=== PATIENT | male | born 1930 | race Caucasian/White ===

== ENCOUNTER 2017-01-06 10:26 | Emergency (ER) | payer MEDICARE, BC ==
--- NOTE | 2017-01-06 11:02 | ERNOTE ---
Back Pain ER HPI Presenting Symptoms: other - patient complains of left flank pain and states he' s had this intermittently with possible kidney stones and/or a UTI Time Seen by Provider: 01/06/17 10:50 Source: patient Exam Limitations: no limitations Immunizations: IMMUNIZATION HX Immunizations Up to Date Yes Allergies/Adverse Reactions: Allergies No Known Allergies Allergy (Verified 01/06/17 10:33) Home Medications: HOME MEDICATIONS Dabigatran Etexilate Mesylate [Pradaxa] 150 mg PO BID 12/08/12 [Last Taken 05/20] Lisinopril 2.5 mg PO DAILY 12/08/12 [Last Taken 05/20/13] Nitroglycerin [Nitrostat] 1 tab SL Q5MIN PRN 12/08/12 [Last Taken Unknown] Pravastatin Sodium [Pravachol] 20 mg PO HS 12/08/12 [Last Taken 05/19/13] Finasteride 5 mg PO DAILY 05/20/13 [Last Taken 05/20/13] Tamsulosin HCl [Flomax] 0.4 mg PO HS 05/20/13 [Last Taken 05/19/13] Ciprofloxacin HCl [Cipro] 500 mg PO BID #20 tab 01/06/17 [Last Taken Unknown] metroNIDAZOLE [Flagyl] 500 mg PO Q12H #20 tablet 01/06/17 [Last Taken Unknown] Narrative: Patient complains of recurrent left flank pain. He rates as moderate intensity with mild shooting pain down into the lower abdomen. Timing: Reports: constant, intermittent Quality/Severity: Reports: moderate Location of pain: Reports: other - left flank Activities at Onset: Reports: none Recent Injury?: Reports: no Possible Precipitating Factor: Reports: none Modifying Factors - (Improves): Reports: nothing Modifying Factors - (Worsens): Reports: nothing Associated Symptoms: Reports: none Review of Systems - Review of Systems Constitutional: Present: See HPI EYE: Present: no symptoms reported ENT: Present: no symptoms reported Respiratory: Present: no symptoms reported Cardiology: Present: no symptoms reported Gastrointestinal/Abdominal: Present: no symptoms reported Genitourinary: Present: other - left flank moderate pain Musculoskeletal: Present: no symptoms reported Skin: Present: no symptoms reported Neurological: Present: no symptoms reported Endocrine: Present: no symptoms reported Hematologic/Lymphatic: Present: no symptoms reported Psych: Present: no symptoms reported - Patient's Past Medical History Patient History - Medical: UTI'S, Other - kidney stones Patient History - Cardiac/Respiratory: Arrhythmias, Hypertension, Myocardial Infarction Patient History - Cancer: Bladder Patient History - Surgical Procedures: Appendectomy Patient History - Other: Immunosuppresive Tx >3mo - Family History Mother Family History - Medical: , No pertinent hx Father Family History - Medical: Family History - Cardiac/Respiratory: Myocardial Infarction - Social History Living Situations: home Abuse History: No History of abuse Psych History: No pertinent hx Alcohol Use: none Drug Use: none - Immunizations Immunizations Up to Date: Yes Physical Exam - Physical Exam General Appearance: Present: wd/wn, alert, moderate distress Head Exam: Present: normal inspection Eye Exam: Normal inspection: bilateral, PERRL: bilateral Ears, Nose, Throat: Present: normal ENT inspection, H, normal pharynx Neck: Present: normal inspection, nontender Respiratory: Present: no respiratory distress, normal breath sounds, no accessory muscle use, chest nontender, lungs clear Cardiovascular/Chest: Present: regular rate, rhythm, no murmur, normal peripheral pulses Gastrointestinal/Abdominal: Present: normal bowel sounds, nondistended, soft, no organomegaly, tenderness - mild suprapubic Rectal Exam: Present: deferred Back Exam: Present: normal inspection, normal range of motion Extremity Exam: Present: normal inspection, non-tender, no edema, normal range of motion Neurological Exam: Present: alert, oriented, normal mood/affect Skin Exam: Present: normal color, warm/dry Lymphatic Exam: Present: no adenopathy ED Progress - Results and Orders Patient's Lab Results:: I have reviewed the patient's lab results. - Vital Signs Patient's Vital Signs:: I have reviewed the patient's vital signs. Vital Signs: Vital Signs 01/06/17 10:29 Temperature 36.6 C Pulse Rate 87 Respiratory 16 Rate Blood Pressure 101/64 O2 Sat by Pulse 95 Oximetry - Progress/Reassessment Chief Complaint: Back Pain Plan - Plan Plan: The patient does not have a fever or diarrhea, to consider the possibility of diverticulitis versus colitis and I agree with the radiologist. Patient be started on antibiotics and he will be referred to on-call general surgeon for consideration of a colonoscopy. Departure Clinical Impression: Abdominal pain Qualifiers: Abdominal location: left lower quadrant Qualified Code(s): R10.32 - Left lower quadrant pain - Departure Disposition: Home self-care Condition: Good Instructions: Diverticulitis, [id number], Colitis Additional Instructions: Discuss arranging a colonoscopy with Dr. Godwin Referrals: J Luis Godwin MD [Primary Care Provider] - Prescriptions: Ciprofloxacin HCl [Cipro] 500 mg PO BID #20 tab metroNIDAZOLE [Flagyl] 500 mg PO Q12H #20 tablet
[2017-01-06 11:20] LABS: Urine Appearance Clear; Urine Bacteria None Seen; Urine Bilirubin Negative (NEGATIVE); Urine Blood 10 /ul (NEGATIVE); Urine Color Yellow; Urine Ketone Negative (NEGATIVE); Urine Nitrite Negative (NEGATIVE); Urine Protein Negative (NEGATIVE); Urine RBC None Seen /hpf (0-5); Urine Squamous Epithelial Cell None Seen /hpf; Urine Urobilinogen Normal (NORMAL); Urine WBC 0-5 /hpf (0-5)
[2017-01-06] MEDS ORDERED: NORMAL SALINE 1,000 ML IV ONE (12:38)
[2017-01-06 12:53] LABS: Hematocrit 41.4 % (42.0-52.0); Hemoglobin 13.8 gm/dL (13.5-18.0); Mean Cell Volume 89.6 fl (78-100); Mean Corpuscular Hemoglobin 29.9 pg (27-31); Mean Corpuscular Hgb Conc 33.3 g/dl (32-36); Mean Platelet Volume 11.3 fl (6.0-9.5); Platelet Count 145 K/mm3 (150-450); Red Blood Count 4.62 M/mm3 (4.7-6.0); Red Cell Distribution Width 14.3 % (11.5-14.0); White Blood Count 10.5 K/mm3 (4.0-10.5)
[2017-01-06 12:58] LABS: Total Cells Counted 100
[2017-01-06 13:09] LABS: Atypical (Reactive) Lymph 11 % (0-2); Band 1 % (0-2.0); Eosinophil 1 % (0-3); Lymphocyte 42 % (20-51); Monocyte 2 % (0-9); Neutrophil 43 % (42-75); Neutrophil # 4.5 K/mm3 (1.3-6.0)
[2017-01-06 13:10] LABS: Platelet Estimate Normal (NORMAL); RBC Morphology Normal (NORMAL)
[2017-01-06 13:25] LABS: Albumin * 3.9 gm/dl (3.4-5.0); Anion Gap 11.3 mmol/L (6.8-13.8); BUN/Creatinine Ratio 17.6 (9.0-21.6); Bilirubin, Total 0.7 mg/dL (0.0-1.1); Ca. Corrected For Albumin 8.4 mg/dL (8.4-10.2); Calcium * 8.6 mg/dL (7.9-10.9); Carbon Dioxide 30.1 mmol/L (24-32.6); Potassium 4.4 mmol/L (3.4-4.6); Total Protein 7.5 gm/dL (6.2-8.2)
[2017-01-06 13:43] VITALS: BP 112/76
== END 2017-01-06 13:50 | disposition home or self-care (01) ==
LOC: ER 10:26
DX: R10.32 Left lower quadrant pain (principal); Z87.440 Personal history of urinary (tract) infections; Z87.442 Personal history of urinary calculi; Z85.51 Personal history of malignant neoplasm of bladder; Z79.01 Long term (current) use of anticoagulants; I10 Essential (primary) hypertension; I25.2 Old myocardial infarction

== ENCOUNTER 2017-03-20 08:15 | Emergency (ER) | payer MEDICARE, BC ==
[2017-03-20 08:31] VITALS: BP 118/51
--- NOTE | 2017-03-20 09:20 | ERNOTE ---
GI Bleeding/Rectal Pain ER Presenting Symptoms: dark/tarry stools Time Seen by Provider: 03/20/17 09:03 Source: patient, family Exam Limitations: no limitations Immunizations: IMMUNIZATION HX Immunizations Up to Date Yes History of Influenza Vaccine No Hx Pneumococcal Vaccination No Allergies/Adverse Reactions: Allergies No Known Allergies Allergy (Verified 01/06/17 10:33) Home Medications: HOME MEDICATIONS Dabigatran Etexilate Mesylate [Pradaxa] 150 mg PO BID 12/08/12 [Last Taken 05/20] Lisinopril 2.5 mg PO DAILY 12/08/12 [Last Taken 05/20/13] Nitroglycerin [Nitrostat] 1 tab SL Q5MIN PRN 12/08/12 [Last Taken Unknown] Pravastatin Sodium [Pravachol] 20 mg PO HS 12/08/12 [Last Taken 05/19/13] Finasteride 5 mg PO DAILY 05/20/13 [Last Taken 05/20/13] Tamsulosin HCl [Flomax] 0.4 mg PO HS 05/20/13 [Last Taken 05/19/13] Narrative: Patient is here for black stools and weakness. 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 He also has a history of bladder cancer, he is currently receiving intravesicular chemo. In 2014 he had a GI bleed, bleeding scan was inconclusive, no endoscopy after that. About a week ago he started to have black stools, not grossly bloddy, no diarrhea, no abodominal pain Patient is on pradaxa for afib three weeks ago he was started on augmentin for a sinus infection, finished about a week ago. Date (Duration): 03/13/17 Nausea/Vomiting: Present: none Abdominal Pain: Present: none Rectal Bleeding: Present: other. Absent: blood streaks on stool, bloody diarrhea Associated Symptoms: Reports: black stools. Denies: maroon stools, tarry stools , fainting, dizziness Prior Treament: Reports: recently seen, similar symptoms before. Denies: currently on antibiotics Review of Systems - Review of Systems Constitutional: Present: See HPI, recent illness, fatigue, malaise. Absent: fever, chills ENT: Absent: nose congestion, sore throat Respiratory: Present: shortness of breath - with excertion Cardiology: Absent: chest pain Gastrointestinal/Abdominal: Present: See HPI. Absent: nausea, vomiting, abdominal pain Genitourinary: Present: no symptoms reported Musculoskeletal: Absent: back pain Skin: Absent: rash Neurological: Absent: dizziness/light-headedness Hematologic/Lymphatic: Absent: easy bruising, easy bleeding - Patient's Past Medical History Patient History - Medical: UTI'S, Other Patient History - Cardiac/Respiratory: Arrhythmias, Hypertension, Hyperlipidemia , Myocardial Infarction Patient History - Cancer: Bladder, Non Hodgkins Lymphoma Patient History - Surgical Procedures: Appendectomy, Cardiac stent, Urology Patient History - Other: Immunosuppresive Tx >3mo - Family History Mother Family History - Medical: , No pertinent hx Father Family History - Medical: Family History - Cardiac/Respiratory: Myocardial Infarction - Social History Abuse History: No History of abuse Psych History: No pertinent hx Smoking Status: Former smoker Have you smoked in the past 12 months: No Do you dip or chew tobacco: No - Immunizations Immunizations Up to Date: Yes Hx Pneumococcal Vaccination: No History of Influenza Vaccine: No Physical Exam - Physical Exam General Appearance: Present: wd/wn, alert, no apparent distress Head Exam: Present: normal inspection Respiratory: Present: no respiratory distress, normal breath sounds, lungs clear Cardiovascular/Chest: Present: regular rate, rhythm, no murmur Gastrointestinal/Abdominal: Present: normal bowel sounds, nontender - , nondistended, soft Neurological Exam: Present: alert, oriented, normal mood/affect Skin Exam: Present: warm/dry, pallor ED Progress - Results and Orders Patient's Lab Results:: I have reviewed the patient's lab results. - Vital Signs Patient's Vital Signs:: I have reviewed the patient's vital signs. Vital Signs: Vital Signs 03/20/17 08:21 Temperature 36.4 C L Pulse Rate 95 Respiratory 14 Rate Blood Pressure 118/51 O2 Sat by Pulse 99 Oximetry - Progress/Reassessment Chief Complaint: GI Bleed Progress Note-Subjective: 03/20/17 10:[address] Woodall, has nothing to add to patients care at this point, was recently seen (January) 03/20/17 11:[address] Tato iglesias to stop mauriceaxa, send home with hemocult cards H/H on Friday, follow up on Sunday 03/2503/20/17 11:31 discussed plan with patient and family Departure Clinical Impression: GI bleeding Qualifiers: GI bleed type/associated pathology: unspecified gastrointestinal hemorrhage type Qualified Code(s): K92.2 - Gastrointestinal hemorrhage, unspecified Anemia Qualifiers: Anemia type: unspecified type Qualified Code(s): D64.9 - Anemia, unspecified - Departure Disposition: Home self-care Condition: Stable Instructions: Anemia, Nonspecific Additional Instructions: have your blood work done tomorrow and on Friday do the stool testing on the next stools available return to the ER at any time for worsening symptoms Referrals: J Luis Godwin MD [Primary Care Provider] - 03/25/17 2:00 pm
[2017-03-20 09:39] LABS: Hemoglobin 8.5 gm/dL (13.5-18.0); Mean Cell Volume 94.5 fl (78-100); Mean Corpuscular Hemoglobin 30.9 pg (27-31); Mean Corpuscular Hgb Conc 32.7 g/dl (32-36); Mean Platelet Volume 11.2 fl (6.0-9.5); Platelet Count 173 K/mm3 (150-450); Red Blood Count 2.75 M/mm3 (4.7-6.0); Red Cell Distribution Width 15.1 % (11.5-14.0)
[2017-03-20 09:42] LABS: Total Cells Counted 100
[2017-03-20 09:48] LABS: Albumin * 3.3 gm/dl (3.4-5.0); Anion Gap 9.3 mmol/L (6.8-13.8); Bilirubin, Total 0.4 mg/dL (0.0-1.1); Ca. Corrected For Albumin 8.6 mg/dL (8.4-10.2); Calcium * 8.4 mg/dL (7.9-10.9); Potassium 4.3 mmol/L (3.4-4.6); Total Protein 6.4 gm/dL (6.2-8.2)
[2017-03-20 10:00] LABS: Atypical (Reactive) Lymph 9 % (0-2); Band 1 % (0-2.0); Eosinophil 1 % (0-3); Hypochromia 1+; Lymphocyte 34 % (20-51); Monocyte 2 % (0-9); Neutrophil 53 % (42-75); Neutrophil # 6.9 K/mm3 (1.3-6.0); Platelet Estimate Normal (NORMAL)
== END 2017-03-20 11:37 | disposition home or self-care (01) ==
LOC: ER 08:15
DX: K92.2 Gastrointestinal hemorrhage, unspecified (principal); D64.9 Anemia, unspecified; Z87.440 Personal history of urinary (tract) infections; Z85.72 Personal history of non-Hodgkin lymphomas; Z85.51 Personal history of malignant neoplasm of bladder; Z95.5 Presence of coronary angioplasty implant and graft; Z87.891 Personal history of nicotine dependence

== ENCOUNTER 2017-03-27 21:47 | Emergency (ER) | payer MEDICARE, BC ==
--- NOTE | 2017-03-27 22:36 | ERNOTE ---
ENT HPI Date of Service: 03/27/17 Presenting Symptoms: other - blurred vision Time Seen by Provider: 03/27/17 22:35 Source: patient Exam Limitations: no limitations - Immun/Allergies/Home Medications Immunizations: IMMUNIZATION HX Immunizations Up to Date Yes History of Influenza Vaccine Yes Hx Pneumococcal Vaccination Yes Allergies/Adverse Reactions: Allergies Allergy/AdvReac Type Severity Reaction Status Date / Time No Known Allergies Allergy Verified 03/28/17 14:51 Home Medications: HOME MEDICATIONS Nitroglycerin [Nitrostat] 1 tab SL [id number] PRN 12/08/12 [Last Taken Unknown] Pravastatin Sodium [Pravachol] 20 mg PO HS 12/08/12 [Last Taken 05/19/13] Finasteride 5 mg PO DAILY 05/20/13 [Last Taken 05/20/13] DOXOrubicin HCL [Adriamycin] 50 mg IV Q60D 03/27/17 [Last Taken Unknown] Docetaxel [Docefrez] 37 mg IV Q60D 03/27/17 [Last Taken Unknown] Gemcitabine HCl 1 gm IV Q60D 03/27/17 [Last Taken Unknown] Wheat Dextrin [Benefiber] 1 tbs PO BID 03/27/17 [Last Taken Unknown] - History of Present Illness Narrative: 86 year old that was watching television when he suddenly saw a bright light flash in both eyes, and subsequently noted blurred vision in both eyes. He likened it to having dirty glasses. There was no actual loss of vision in either eye, headache or eye pain. He had a similar event occur 6-12 months ago that spontaneously resolved. No complaints of N/V, fevers, chills, chest/back/ abdominal pain, trauma, gait or weakness since the onset of symptoms. Date (Duration): 03/28/17 Time (Timing): 22:00 Severity: Present: mild ENT Location: Present: eye (R), eye (L) Prearrival Treatment: Present: no prearrival treatment Modifying Factors - Improves: Reports: nothing Modifying Factors - Worsens: Reports: nothing Associated Symptoms - ENT: Reports: denies symptoms Prior Treament: Reports: similar symptoms before Review of Systems - Review of Systems Constitutional: Present: no symptoms reported EYE: Present: see HPI ENT: Present: no symptoms reported Respiratory: Present: no symptoms reported Cardiology: Present: no symptoms reported Gastrointestinal/Abdominal: Present: no symptoms reported Genitourinary: Present: no symptoms reported Musculoskeletal: Present: no symptoms reported Skin: Present: no symptoms reported Neurological: Absent: headache, dizziness/light-headedness, seizure, weakness, numbness, tingling, tremors, pre-existing deficit Endocrine: Present: no symptoms reported Hematologic/Lymphatic: Present: no symptoms reported Psych: Present: no symptoms reported - Patient's Past Medical History Patient History - Medical: UTI'S, Other Patient History - Cardiac/Respiratory: Arrhythmias, Hypertension, Hyperlipidemia , Myocardial Infarction Patient History - Cancer: Bladder, Non Hodgkins Lymphoma Patient History - Surgical Procedures: Appendectomy, Cardiac stent, Urology Patient History - Other: Immunosuppresive Tx >3mo - Family History Mother Family History - Medical: , No pertinent hx Father Family History - Medical: Family History - Cardiac/Respiratory: Myocardial Infarction - Social History Living Situations: home Abuse History: No History of abuse Psych History: No pertinent hx Smoking Status: Former smoker Alcohol Use: none Drug Use: none - Immunizations Immunizations Up to Date: Yes Hx Pneumococcal Vaccination: Yes History of Influenza Vaccine: Yes Physical Exam - Physical Exam General Appearance: Present: no apparent distress Head Exam: Present: normal inspection Eye Exam: Normal inspection: bilateral, PERRL: bilateral, EOMI: bilateral, Other : bilateral - When visual oneill were tested his peripheral vision of the left was not a sharp as the right. Ears, Nose, Throat: Present: normal ENT inspection Neck: Present: normal inspection Respiratory: Present: no respiratory distress Cardiovascular/Chest: Present: regular rate, rhythm Gastrointestinal/Abdominal: Present: nondistended Back Exam: Present: normal inspection Extremity Exam: Present: normal inspection Neurological Exam: Present: alert, oriented, epic cupid analyst II-XII nml as tested, other - normal gait. Absent: motor weakness, disoriented to person, disoriented to time , disoriented to place, disoriented to situation Skin Exam: Present: normal color ED Progress - Vital Signs Patient's Vital Signs:: I have reviewed the patient's vital signs. Vital Signs: Vital Signs 03/27/17 21:51 Temperature 36.3 C L Pulse Rate 71 Respiratory 18 Rate Blood Pressure 136/80 O2 Sat by Pulse 99 Oximetry - Progress/Reassessment Chief Complaint: Eye Injury/Trauma Progress:: Improved Progress Note-Subjective: 03/28/17 20:51 Two attempts were made to contact the ophthalmologists but there was no answer. While in the ED the symptoms were resolving. It is suspected that the symptoms were due to an ocular migraine, and unlikely to be a TIA. He was referred to Dr. Estrella first thing in the morning, which is a few hours withing being seen. An MRI should be considered. 03/28/17 20:53 03/28/17 23:43 Departure Clinical Impression: Blurred vision, bilateral - Departure Disposition: Home self-care Condition: Good Instructions: Blurred Vision Print Language: [place] Additional Instructions: Call Dr. Mae the first thing in the morning for consultation. Return to the ED as needed. Referrals: Shade Mae MD [Staff Physician] - J Luis Godwin MD [Primary Care Provider] -
[2017-03-28 01:13] VITALS: BP 125/59
== END 2017-03-28 01:05 | disposition home or self-care (01) ==
LOC: ER 21:47
DX: H53.8 Other visual disturbances (principal); Z87.440 Personal history of urinary (tract) infections; I10 Essential (primary) hypertension; E78.5 Hyperlipidemia, unspecified; I25.2 Old myocardial infarction; Z85.51 Personal history of malignant neoplasm of bladder; Z85.72 Personal history of non-Hodgkin lymphomas; Z87.891 Personal history of nicotine dependence

== ENCOUNTER 2017-03-28 14:12 | Day surgery (SDC) | payer MEDICARE, BC ==
[~2017-03-28 14:12] MED LIST: RINGER'S SOLUTION,LACTATED 1,000 ML IV PRN
[2017-03-28] MEDS ORDERED: RINGER'S SOLUTION,LACTATED 1,000 ML IV ONE (14:50)
--- NOTE | 2017-03-28 17:05 | OR ---
Operative Report - Dictated Report Narrative: Date: 03/28/2017 Preoperative diagnosis: Anemia, possible gastric source of her bleeding scan Postoperative diagnosis: Numerous nodules of the duodenal bulb with friability. Small hiatal hernia. Procedure: Esophagogastroduodenoscopy with biopsy Surgeon: Mike Kim MD Anesthesia: MAC per ART APPRAISER EBL: Minimal Specimens: Cold forcep biopsy of duodenal nodule. CLOtest. Description of procedure: After informed consent the bite block was inserted and IV sedation was administered P per ART APPRAISER. Flexible video endoscope was inserted through the bite block, through the posterior pharynx, and into the esophagus under direct vision. The scope was then advanced through the esophagus, stomach, and into the duodenum. We were able to cannulate the third portion of the duodenum. The second and third portion of the duodenum appeared to be normal. The duodenal bulb had numerous nodules that were friable and mildly bleeding. A cold forceps biopsy was taken of one of these nodules. The scope was then withdrawn into the antrum and a CLOtest biopsy was taken with cold forceps. The antrum body and fundus of the stomach appeared to be normal there was no gastritis or ulcers noted. Retroflexion of the scope within the stomach revealed a small hiatal hernia. The endoscope was withdrawn into the distal esophagus. No abnormalities were seen. Remainder of the esophagus was unremarkable. The patient tolerated procedure well and was discharged from the endoscopy suite in stable condition. Recommendations: Await pathology results on the duodenal biopsy and CLOtest.
[2017-03-28 18:02] VITALS: BP 114/45
== END 2017-03-28 14:13 | disposition home or self-care (01) ==
LOC: AMB 14:12
PROVIDERS: ATTEND Specialist
PROC: 0DB98ZX Excision of Duodenum, Via Natural or Artificial Opening Endoscopic, Diagnostic (ICD-10-PCS; principal; 2017-03-28 16:00)
DX: K29.50 Unspecified chronic gastritis without bleeding (principal); D64.9 Anemia, unspecified; K44.9 Diaphragmatic hernia without obstruction or gangrene; I10 Essential (primary) hypertension; E78.5 Hyperlipidemia, unspecified; I25.10 Atherosclerotic heart disease of native coronary artery without angina pectoris; I48.91 Unspecified atrial fibrillation; C67.9 Malignant neoplasm of bladder, unspecified; Z87.891 Personal history of nicotine dependence; Z68.27 Body mass index [BMI] 27.0-27.9, adult

== ENCOUNTER 2018-04-01 09:57 | Observation (INO) | payer BC, MEDICARE ==
[2018-04-01] MEDS ORDERED: DILTIAZEM HCL 5 MG/ML VIAL IV ONE ×2 (10:04→10:07)
[2018-04-01] MEDS ORDERED: FAMOTIDINE 10 MG/ML VIAL IV ONE ×2 (10:07→10:08)
[2018-04-01] MEDS ORDERED: METHYLPREDNISOLONE SOD SUCC/PF 125 MG/2 ML VIAL IV ONE (10:07)
[2018-04-01] MEDS ORDERED: diphenhydrAMINE HCL 50 MG/ML VIAL IV ONE (10:07)
[2018-04-01] MEDS: NORMAL SALINE 100 ML IV ONE ×2 (10:10→14:10)
[2018-04-01] MEDS ORDERED: ALBUTEROL SULFATE/IPRATROPIUM 3 ML NEBU IH ONE ×2 (10:10→10:20)
[2018-04-01] MEDS ORDERED: METOPROLOL TARTRATE 1 MG/ML AMPUL IV ONE ×2 (10:16→10:20)
[2018-04-01 10:21] LABS: Hematocrit 34.8 % (42.0-52.0); Hemoglobin 10.1 gm/dL (13.5-18.0); Mean Cell Volume 92.8 fl (78-100); Mean Corpuscular Hemoglobin 26.9 pg (27-31); Platelet Count 227 K/mm3 (150-450); Red Blood Count 3.75 M/mm3 (4.7-6.0); Red Cell Distribution Width 18.2 % (11.5-14.0); White Blood Count 13.6 K/mm3 (4.0-10.5)
--- NOTE | 2018-04-01 10:22 | ERNOTE ---
Allergy Symptoms - ER Presenting Symptoms: trouble breathing Time Seen by Provider: 04/01/18 10:00 Source: patient, RN/MD Exam Limitations: other - profound respiratory distress Immunizations: IMMUNIZATION HX Immunizations Up to Date Yes History of Influenza Vaccine Yes Hx Pneumococcal Vaccination Yes Allergies/Adverse Reactions: Allergies ferumoxytol [From F[employer]] Allergy (Severe, Verified 04/01/18 10:46) Anaphylaxis witnessed Home Medications: HOME MEDICATIONS metoprolol tartrate 25 mg tablet 12.5 mg PO BID tab 10/29/17 [Last Taken Unknown] multivitamin tablet 1 tab PO DAILY 10/29/17 [Last Taken Unknown] dabigatran etexilate 150 mg capsule 75 mg PO BID cap 12/30/17 [Last Taken Unknown] nitroglycerin 0.4 mg sublingual tablet 0.4 mg SL Q5M PRN #20 tab 02/25/18 [Last Taken Unknown] finasteride 5 mg tablet 5 mg PO DAILY #90 tab 03/05/18 [Last Taken Unknown] furosemide 40 mg tablet 80 mg PO DAILY #60 tab 03/18/18 [Last Taken Unknown] 2 morgan walker 0 .ROUTE .MEDSUPPLY #99 ea 03/31/18 [Last Taken Unknown] pravastatin 20 mg tablet 20 mg PO HS #90 tab 03/31/18 [Last Taken Unknown] - History of Present Illness Narrative: Patient was in our annex getting an iron transfusion and had an acute severe a llergic reaction. Patient was found to be in atrial fibrillation with a rapid ventricular response, he was profoundly hypoxic and moving a little to no air. Timing: Present: constant Treatment LABEL TACKER:: none Location skin rash/itching: Present: none Location swelling: Present: none Severity shortness of breath: Present: severe Severity trouble swallowing/speaking: Present: severe Identified cause?: Yes - likely the iron injections Exposure: Present: none Modifying Factors (Improves): Reports: nothing Modifying Factors (Worsens): Reports: nothing Similar symptoms previously: No Prior Treament: Reports: recently seen, treated by physician Review of Systems - Review of Systems Constitutional: Present: See HPI EYE: Present: no symptoms reported ENT: Present: no symptoms reported Respiratory: Present: See HPI Cardiology: Present: See HPI Gastrointestinal/Abdominal: Present: no symptoms reported Genitourinary: Present: no symptoms reported Musculoskeletal: Present: no symptoms reported Skin: Present: no symptoms reported Neurological: Present: no symptoms reported Endocrine: Present: no symptoms reported Hematologic/Lymphatic: Present: no symptoms reported Psych: Present: no symptoms reported Medical History (Last Reviewed 04/01/18 @ 10:25 by Ewa Melara RN) Atrial fibrillation Onset Date: Unknown 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 Congestive heart failure Onset Date: Unknown Coronary artery disease Onset Date: Unknown Hyperlipidemia Onset Date: Unknown Hypertension Onset Date: Unknown Intermittent self-catheterization of bladder Onset Date: ~12/07/15 Monthly maintenance intravesical installation of Adriamycin/Gemcitabine Lymphedema Onset Date: ~06/04/17 Right lower extremity Malignant neoplasm of bladder Onset Date: Unknown PVD (peripheral vascular disease) Onset Date: ~04/09/17 Left common femoral artery and left external iliac artery embolectomy Seasonal allergies Onset Date: Unknown Dysuria Onset Date: Unknown Hernia, inguinal Onset Date: Unknown Hx of echocardiogram Onset Date: ~01/22/10 EF - 60%, moderate apical hypo, moderate LVH Lymphoma, non-Hodgkin's Onset Date: ~1999 Myocardial infarction Onset Date: ~02/07/10 NSTEMI Ventricular tachycardia Onset Date: Unknown Surgical History: Surgical History (Last Reviewed 04/01/18 @ 10:25 by Ewa Melara RN) H/O colonoscopy Onset Date: ~06/18/99 Nahomy; [place] H/O cystoscopy Onset Date: Unknown 02/14/2015 - [facility] Dr[facility] Cristobal 07/2017: [facility] H/O inguinal hernia repair Onset Date: ~1979 [place] H/O transesophageal echocardiography (ANT) for monitoring Onset Date: Unknown 01/25/11, 02/19/11 History of appendectomy Onset Date: ~[place] History of biopsy of bladder Onset Date: ~02/15/16 06/02/2015 and 02/15/2016; [facility] Cristobal History of bowel resection Onset Date: ~1999 Small bowel resection History of embolectomy Onset Date: ~04/15/17 left femoral artery History of esophagogastroduodenoscopy (EGD) Onset Date: ~03/28/17199904/07/17: Tommeraasen - clotest negative, H. Pylori in the duodenum History of intravascular stent placement Onset Date: ~2010 2009 and 2010 - 2 stents History of left cataract surgery Onset Date: ~02/14/09 History of tonsillectomy Onset Date: ~1946 S/P TURP Onset Date: ~2012 Family History: Family History (Last Reviewed 04/01/18 @ 10:25 by Ewa Melara RN) Father , Age 58 Myocardial infarction Mother , Age 80 Hip fracture Sister , Age 82 Breast cancer CVA (cerebral vascular accident) Social History: Preferred Language Dominican Smoking Status Former smoker Abuse History No History of abuse Psych History No pertinent hx (Last Updated 03/31/18 @ 15:53 by J Luis Godwin MD) No Social History Section defined Physical Exam - Physical Exam General Appearance: Present: wd/wn, alert, severe distress Head Exam: Present: normal inspection, no evidence of injury Eye Exam: Normal inspection: bilateral, PERRL: bilateral Ears, Nose, Throat: Present: normal ENT inspection, H, normal pharynx Neck: Present: normal inspection, nontender Respiratory: Present: chest nontender, respiratory distress, accessory muscle use, decreased breath sounds Cardiovascular/Chest: Present: no murmur, normal peripheral pulses, tachycardia, irregularly irregular Gastrointestinal/Abdominal: Present: normal bowel sounds, nontender, nondistended, soft, no organomegaly Rectal Exam: Present: deferred Back Exam: Present: normal inspection, normal range of motion Extremity Exam: Present: normal inspection, non-tender, no edema, normal range of motion Neurological Exam: Present: alert, oriented, normal mood/affect Skin Exam: Present: normal color, warm/dry Lymphatic Exam: Present: no adenopathy Progress - Results and Orders Patient's Lab Results:: I have reviewed the patient's lab results. - Vital Signs Patient's Vital Signs:: I have reviewed the patient's vital signs. Vital Signs: Vital Signs 04/01/18 09:59 04/01/18 10:07 04/01/18 10:21 Temperature 36.2 C Pulse Rate 140 H 140 H 98 Respiratory Rate 33 H Blood Pressure 137/76 137/76 120/60 O2 Sat by Pulse Oximetry 75 L - EKG EKG: atrial fibrillation EKG read: Reviewed by me - X-Ray X-Ray #1 X-Ray: chest Interpretation: Reviewed by me - Progress/Reassessment Chief Complaint: Allergic Reaction Plan - Plan Plan: Patient be admitted to the intensive care unit for weaning off of the BiPAP. Departure Clinical Impression: Allergic reaction due to correct medicinal substance properly administered, Chronic atrial fibrillation with RVR, Hypoxia - Departure Disposition: Still a patient Condition: Critical Critical Care Note - Critical Care Note Total Time (mins): 50 Comments: Patient required emergent intervention in the form of IV steroids, Benadryl, Pepcid, Cardizem, Lopressor IV and BiPAP. The patient was in impending respiratory failure as his oxygen saturation was approximately 70% and his PCO2 had climbed to 83.9 with a pH 7.193 that had deteriorated intercourse of minutes. The patient be admitted to the ICU and he will be weaned off the BiPAP hopefully over the course of the day. His heart rate has improved substantially to the 70s now, although his blood pressure is still somewhat labile at 88/50.
[2018-04-01 10:26] LABS: Total Cells Counted 100
[2018-04-01 10:35] LABS: INR 1.59 INR (0.90-1.10)
[2018-04-01 10:42] LABS: ALT 9 U/L (19-67); AST 16 U/L (0-48); Albumin * 2.5 gm/dl (3.4-5.0); Alkaline Phosphatase * 70 U/L (50-170); Anion Gap 10.3 mmol/L (6.8-13.8); BUN/Creatinine Ratio 18.8 (9.0-21.6); Bilirubin, Total 0.4 mg/dL (0.0-1.1); Blood Urea Nitrogen 29 mg/dL (6-23); Ca. Corrected For Albumin 10.1 mg/dL (8.4-10.2); Calcium * 9.2 mg/dL (7.9-10.9); Carbon Dioxide 33.2 mmol/L (24-32.6); Chloride 101 mmol/L (97-106); Glucose * 166 mg/dL (70-110); Magnesium 1.8 mg/dL (1.2-2.8); Potassium 3.5 mmol/L (3.4-4.6); Sodium 141 mmol/L (132-142)
[2018-04-01 10:43] LABS: Troponin I Less than 0.017 ng/mL (0.00-0.10)
[2018-04-01 10:54] LABS: Atypical (Reactive) Lymph 1 % (0-2); Band 1 % (0-2.0); Lymphocyte 61 % (20-51); Monocyte 8 % (0-9); Neutrophil 29 % (42-75); Neutrophil # 3.9 K/mm3 (1.3-6.0)
[2018-04-01 10:55] LABS: Anisocytosis 2+; Hypochromia 2+; Platelet Estimate Normal (NORMAL)
[2018-04-01] MEDS ORDERED: NORMAL SALINE 250 ML IV ONE (11:15)
[2018-04-01] MEDS ORDERED: NORMAL SALINE 1,000 ML IV ONE (11:15)
[2018-04-01] MEDS ORDERED: NITROGLYCERIN 0.4 MG/TAB BTL SL PRN (12:56)
--- NOTE | 2018-04-01 12:58 | HP ---
Chief Complaint - Chief Complaint Date of Service: 04/01/18 Time of Service: 14:01 Chief Complaint: allergic reaction, respiratory distress, a-fib c RVR History of Present Illness: 87 year old male here admitted to the SCU following an allergic reaction to an iron infusion which had been taking place in the annex earlier this morning. He became severely hypoxic (into the 70s) as well as having a heart rate was in the 150s. EKG in the ER showed him to be in a-fib with RVR. He was giving IV steroids, benadryl, diltiazem, pepcid, lopressor. He was placed on bipap. Initial ABG showed an acute respiratory acidosis with a pH of 7.19 and a pCO2 of 89. After receiving the above tx, it was decided that he needed observation and agreed to stay 24 hrs with us. He has a hx of non-hodgkins lymphoma, bladder cancer, a-fib c RVR, CHF, CAD, NS CLEMENTINE. In the unit he was on his first bag of fluids. His HR was in the 70s and his BP was stable at 100/70. He was comfortable and breathing much easier. 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 Congestive heart failure Onset Date: Unknown Coronary artery disease Onset Date: Unknown Hyperlipidemia Onset Date: Unknown Hypertension Onset Date: Unknown Lymphedema Onset Date: ~06/04/17 Right lower extremity Malignant neoplasm of bladder Onset Date: Unknown PVD (peripheral vascular disease) Onset Date: ~04/09/17 Left common femoral artery and left external iliac artery embolectomy Seasonal allergies Onset Date: Unknown Dysuria Onset Date: Unknown Hernia, inguinal Onset Date: Unknown Hx of echocardiogram Onset Date: ~01/22/10 EF - 60%, moderate apical hypo, moderate LVH Lymphoma, non-Hodgkin's Onset Date: ~1999 Myocardial infarction Onset Date: ~02/07/10 NSTEMI Ventricular tachycardia Onset Date: Unknown Surgical History: Surgical History (Last Reviewed 04/01/18 @ 12:11 by Mary Frias RN) H/O colonoscopy Onset Date: ~06/18/99 Nahomy; [place] H/O cystoscopy Onset Date: Unknown 02/14/2015 - cystoscopy and [facility] Dr. Cristobal 07/2017: [facility] H/O inguinal hernia repair Onset Date: ~[facility] H/O transesophageal echocardiography (ANT) for monitoring Onset Date: Unknown 01/25/11, 02/19/11 History of appendectomy Onset Date: ~1979 [place] History of biopsy of bladder Onset Date: ~02/15/1610/2017, 06/02/2015 and 02/15/2016; [facility] Crist[facility] History of bowel resection Onset Date: ~1999 Small bowel resection History of embolectomy Onset Date: ~04/15/17 left femoral artery History of esophagogastroduodenoscopy (EGD) Onset Date: ~03/28/17199904/07/17: Tommeraasen - clotest negative, H. Pylori in the duodenum History of intravascular stent placement Onset Date: ~2010 2009 and 2010 - 2 stents History of left cataract surgery Onset Date: ~02/14/09 History of tonsillectomy Onset Date: ~1946 S/P TURP Onset Date: ~2012 Family History: Family History (Last Reviewed 04/01/18 @ 12:12 by Mary Frias RN) Father , Age 58 Myocardial infarction Mother , Age 80 Hip fracture Sister , Age 82 Breast cancer CVA (cerebral vascular accident) Social History: Preferred Language Portuguese Do you have any mu-ism or Yes: taoist cultural preference? Smoking Status Former smoker Have you smoked in the past 12 No months Do you dip or chew tobacco No Abuse History No History of abuse Psych History No pertinent hx Alcohol Use sober Drug Use none (Last Updated 03/31/18 @ 15:53 by J Luis Godwin MD) No Social History Section defined Review Of Systems (GEN) - Review of Systems Generalized/Overall Review: Present: Weakness, Fatigue. Absent: Chills, Fever EENTM: Present: No Symptoms Reported Respiratory: Present: Shortness of Breath. Absent: Cough, Wheezing Cardiac: Absent: Palpitations - he never feels himself in a-fib per his Abdominal: Absent: Nausea, Vomiting, Abdominal Pain Genitourinary: Present: Hematuria - chronic due to the bladder cancer Musculoskeletal: Present: No Symptoms Reported Neurological: Present: No Symptoms Reported Skin: Present: No Symptoms Reported Endocrine: Present: No Symptoms Reported Misc: All systems neg except as marked Immunizations: IMMUNIZATION HX Immunizations Up to Date Yes History of Influenza Vaccine Yes Hx Pneumococcal Vaccination Yes Allergies/Adverse Reactions: Allergies Allergy/AdvReac Type Severity Reaction Status Date / Time ferumoxytol [From [employer]] Allergy Severe Anaphylaxis Verified 04/01/18 10:46 Home Medications: HOME MEDICATIONS metoprolol tartrate 25 mg tablet 12.5 mg PO BID tab 10/29/17 [Last Taken Unknown] multivitamin tablet 1 tab PO DAILY 10/29/17 [Last Taken Unknown] dabigatran etexilate 150 mg capsule 75 mg PO BID cap 12/30/17 [Last Taken Unknown] nitroglycerin 0.4 mg sublingual tablet 0.4 mg SL Q5M PRN #20 tab 02/25/18 [Last Taken Unknown] finasteride 5 mg tablet 5 mg PO DAILY #90 tab 03/05/18 [Last Taken Unknown] 2 morgan walker 0 .ROUTE .MEDSUPPLY #99 ea 03/31/18 [Last Taken Unknown] pravastatin 20 mg tablet 20 mg PO HS #90 tab 03/31/18 [Last Taken Unknown] Furosemide [Lasix] 10 meq PO BID 04/01/18 [Last Taken Unknown] Omeprazole 40 mg PO DAILY 04/01/18 [Last Taken Unknown] Exam - Exam Vital Signs: Vital Signs - Last Taken Temp 36.1 C 04/01/18 10:50 Pulse 70 04/01/18 11:15 Resp 26 H 04/01/18 11:15 BP 107/66 04/01/18 11:15 Pulse Ox 99 04/01/18 11:15 Constitutional: Present: Alert, Oriented x3, No distress ENT Exam: Present: other - deferred as patient had BiPaP mask on Eye Exam: bilateral eye: normal inspection, EOMI Neck: Present: non-tender, full range of motion Back Exam: Present: CVA tenderness (L) - chronic. Absent: CVA tenderness (R) Respiratory: Present: lungs clear, normal breath sounds, no respiratory distress - moving air well Cardiovascular/Chest: Present: normal peripheral pulses Abdomen: Present: Normal bowel sounds, soft, nontender /Rectal: Present: Exam deferred Extremity: Absent: leg pain, pedal edema Skin Exam: Present: normal color, warm/dry Neurologic: Present: alert, normal mood/affect, oriented x 3 Appearance: Present: appropriate appearance, appropriate insight Eye contact: Present: cooperative, good eye contact Thoughts: Present: normal thought pattern, normal mood /affect Diagnostic Studies: Abnormal Lab Results 04/01/18 04/01/18 04/01/18 Range/Units 10:07 10:10 10:10 WBC 13.6 H (4.0-10.5) K/mm3 RBC 3.75 L (4.7-6.0) M/mm3 Hgb 10.1 L (13.5-18.0) gm/dL Hct 34.8 L (42.0-52.0) % MCH 26.9 L (27-31) pg MCHC 29.0 L (32-36) g/dl RDW 18.2 H (11.5-14.0) % Neutrophils % (Manual) 29 L (42-75) % Lymphocytes % (Manual) 61 H (20-51) % Lymphocytes # (Manual) 8.3 H (1.5-3.5) k/mm3 Monocytes # (Manual) 1.1 H (0.0-1.0) k/mm3 PT (9.0-11.0) Seconds INR (Anticoag Therapy) (0.90-1.10) INR PTT (Ge) (24-32) Seconds pCO2 83.9 H* (35.0-48.0) mmHg HCO3 31.5 H (21.0-28.0) mmol/L Total CO2 34.1 H (19.0-24.0) mmol/L ABG pH 7.19 L (7.35-7.45) Carbon Dioxide 33.2 H (24-32.6) mmol/L BUN 29 H (6-23) mg/dL Creatinine 1.54 H (0.4-1.4) mg/dL Est GFR (Non-Af Amer) 46 L (60-130) mL/min Random Glucose 166 H D (70-110) mg/dL ALT 9 L (19-67) U/L Albumin 2.5 L (3.4-5.0) gm/dl 04/01/18 Range/Units 10:10 WBC (4.0-10.5) K/mm3 RBC (4.7-6.0) M/mm3 Hgb (13.5-18.0) gm/dL Hct (42.0-52.0) % MCH (27-31) pg MCHC (32-36) g/dl RDW (11.5-14.0) % Neutrophils % (Manual) (42-75) % Lymphocytes % (Manual) (20-51) % Lymphocytes # (Manual) (1.5-3.5) k/mm3 Monocytes # (Manual) (0.0-1.0) k/mm3 PT 16.0 H (9.0-11.0) Seconds INR (Anticoag Therapy) 1.59 H (0.90-1.10) INR PTT (Ge) 39.0 H (24-32) Seconds pCO2 (35.0-48.0) mmHg HCO3 (21.0-28.0) mmol/L Total CO2 (19.0-24.0) mmol/L ABG pH (7.35-7.45) Carbon Dioxide (24-32.6) mmol/L BUN (6-23) mg/dL Creatinine (0.4-1.4) mg/dL Est GFR (Non-Af Amer) (60-130) mL/min Random Glucose (70-110) mg/dL ALT (19-67) U/L Albumin (3.4-5.0) gm/dl Laboratory Results WBC 13.6 K/mm3 (4.0-10.5) H 04/01/18 10:10 RBC 3.75 M/mm3 (4.7-6.0) L 04/01/18 10:10 Hgb 10.1 gm/dL (13.5-18.0) L 04/01/18 10:10 Hct 34.8 % (42.0-52.0) L 04/01/18 10:10 MCV 92.8 fl (78-100) 04/01/18 10:10 MCH 26.9 pg (27-31) L 04/01/18 10:10 MCHC 29.0 g/dl (32-36) L 04/01/18 10:10 RDW 18.2 % (11.5-14.0) H 04/01/18 10:10 Plt Count 227 K/mm3 (150-450) 04/01/18 10:10 MPV 11.0 fl (8-11.3) 04/01/18 10:10 Neutrophils % (Manual) 29 % (42-75) L 04/01/18 10:10 Band Neuts % (Manual) 1 % (0-2.0) 04/01/18 10:10 Lymphocytes % (Manual) 61 % (20-51) H 04/01/18 10:10 Monocytes % (Manual) 8 % (0-9) 04/01/18 10:10 Neutrophils # (Manual) 3.9 K/mm3 (1.3-6.0) 04/01/18 10:10 Lymphocytes # (Manual) 8.3 k/mm3 (1.5-3.5) H 04/01/18 10:10 Monocytes # (Manual) 1.1 k/mm3 (0.0-1.0) H 04/01/18 10:10 Atypic/Reactive Lymphs 1 % (0-2) 04/01/18 10:10 Platelet Estimate Normal (NORMAL) 04/01/18 10:10 Hypochromasia 2+ 04/01/18 10:10 Anisocytosis 2+ 04/01/18 10:10 PT 16.0 Seconds (9.0-11.0) H 04/01/18 10:10 INR (Anticoag Therapy) 1.59 INR (0.90-1.10) H 04/01/18 10:10 PTT (Ge) 39.0 Seconds (24-32) H 04/01/18 10:10 pCO2 83.9 mmHg (35.0-48.0) H* 04/01/18 10:07 pO2 99.4 mmHg (83.0-108.0) 04/01/18 10:07 HCO3 31.5 mmol/L (21.0-28.0) H 04/01/18 10:07 Total CO2 34.1 mmol/L (19.0-24.0) H 04/01/18 10:07 Base Excess 1.7 mmol/L (-2.0-3.0) 04/01/18 10:07 ABG pH 7.19 (7.35-7.45) L 04/01/18 10:07 ABG O2 Sat (Measured) 95.6 % (94.0-98.0) 04/01/18 10:07 Sodium 141 mmol/L (132-142) 04/01/18 10:10 Plasma Sodium 142 mmol/L (130-142) 04/01/18 10:10 Potassium 3.5 mmol/L (3.4-4.6) 04/01/18 10:10 Chloride 101 mmol/L (97-106) 04/01/18 10:10 Carbon Dioxide 33.2 mmol/L (24-32.6) H 04/01/18 10:10 Anion Gap 10.3 mmol/L (6.8-13.8) 04/01/18 10:10 BUN 29 mg/dL (6-23) H 04/01/18 10:10 Creatinine 1.54 mg/dL (0.4-1.4) H 04/01/18 10:10 Est GFR (Non-Af Amer) 46 mL/min (60-130) L 04/01/18 10:10 BUN/Creatinine Ratio 18.8 (9.0-21.6) 04/01/18 10:10 Random Glucose 166 mg/dL (70-110) H D 04/01/18 10:10 Calcium 9.2 mg/dL (7.9-10.9) 04/01/18 10:10 Calcium Adj for Albumin 10.1 mg/dL (8.4-10.2) 04/01/18 10:10 Magnesium 1.8 mg/dL (1.2-2.8) 04/01/18 10:10 Total Bilirubin 0.4 mg/dL (0.0-1.1) 04/01/18 10:10 AST 16 U/L (0-48) 04/01/18 10:10 ALT 9 U/L (19-67) L 04/01/18 10:10 Alkaline Phosphatase 70 U/L (50-170) 04/01/18 10:10 Troponin I Less than 0.017 ng/mL (0.00-0.10) 04/01/18 10:10 Total Protein 7.0 gm/dL (6.2-8.2) 04/01/18 10:10 Albumin 2.5 gm/dl (3.4-5.0) L 04/01/18 10:10 Blood Type A Positive 04/01/18 10:10 Antibody Screen Negative 04/01/18 10:10 Assessment/Plan - Narrative Narrative: Patient comfortable in the unit. No hx of adverse reactions to iron infusion in the past. No hx of lung disease. Will continue BiPaP, recheck ABG 4 hours after being on bipap. If significant improvement, will consider moving to the floor with continuous pulse ox monitoring. Will check another abg this evening if move is made. Will restart home meds. Patient states that he is normally well controlled on lopressor. Will use diltiazem if a-fib difficult to maintain control of. He is on anticoagulation for hx of femoral embolus (likely 2/2 to his cancer). Hematuria is chronic, secondary to bladder cancer. Being managed by his oncologist, no changes to his home tx option. Blood in his urine is a chronic issue. Will order HH meal. No dvt ppx. Likely home tomorrow if there are no setbacks. 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
[2018-04-01] MEDS: FUROSEMIDE 40 MG TABLET PO SCH (17:19)
[2018-04-01] MEDS: ACETAMINOPHEN 325 MG TABLET PO PRN (17:50)
[2018-04-01] MEDS: DABIGATRAN ETEXILATE MESYLATE 75 MG CAPSULE PO SCH (20:22)
[2018-04-01] MEDS: METOPROLOL TARTRATE 25 MG TABLET PO SCH (20:22)
[2018-04-01] MEDS ORDERED: SIMVASTATIN 10 MG TABLET PO SCH (21:00)
[2018-04-02] MEDS: ACETAMINOPHEN 325 MG TABLET PO PRN ×2 (00:22→06:38)
[2018-04-02] MEDS ORDERED: PANTOPRAZOLE SODIUM 40 MG TABLET.EC PO SCH (07:00)
[2018-04-02] MEDS ORDERED: FINASTERIDE 5 MG TABLET PO SCH (09:00)
[2018-04-02] MEDS: FUROSEMIDE 40 MG TABLET PO SCH (09:18)
[2018-04-02] MEDS: DABIGATRAN ETEXILATE MESYLATE 75 MG CAPSULE PO SCH (09:18)
[2018-04-02] MEDS: METOPROLOL TARTRATE 25 MG TABLET PO SCH (09:19)
--- NOTE | 2018-04-02 09:43 | DS ---
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 Mcmahan was placed in observation after he had a severe allergic reaction to an iron transfusion that he was getting in the annex. He developed hypoxia and SOB with an o2 sat down in the 70s. This reaction also trigger his heart to go into a-fib c RVR (normally well controlled). He was given IV steroids, benadryl, pepcid, dilt, lopressor. He was placed on bipap which he kept on for roughly 6 hours. His allergic reaction resolved and he was then reddy sferred to the medical floor from the SCU. After arriving there, he had an uneventful stay. His HR was well controlled. Repeat abg showed his gasses to have returned to acceptable ranges. He ate well overnight. He was talkative and pleasant this morning and ready to go home. His vitals have been stable. Procedures Performed: none Results and Findings: Lab Pending Results 04/01/18 10:07: pCO2 83.9 H*, pO2 99.4, HCO3 31.5 H, Total CO2 34.1 H, Base Excess 1.7, ABG pH 7.19 L, ABG O2 Sat (Measured) 95.6 04/01/18 10:10: WBC 13.6 H, RBC 3.75 L, Hgb 10.1 L, Hct 34.8 L, MCV 92.8, MCH 26.9 L, MCHC 29.0 L, RDW 18.2 H, Plt Count 227, MPV 11.0, Neutrophils % (Manual) 29 L, Band Neuts % (Manual) 1, Lymphocytes % (Manual) 61 H, Monocytes % (Manual) 8, Neutrophils # (Manual) 3.9, Lymphocytes # (Manual) 8.3 H, Monocytes # (Manual) 1.1 H, Atypic/Reactive Lymphs 1, Platelet Estimate Normal, Hypochro masia 2+, Anisocytosis 2+ 04/01/18 10:10: Sodium 141, Plasma Sodium 142, Potassium 3.5, Chloride 101, Carbon Dioxide 33.2 H, Anion Gap 10.3, BUN 29 H, Creatinine 1.54 H, Est GFR (Non-Af Amer) 46 L, BUN/Creatinine Ratio 18.8, Random Glucose 166 H D, Calcium 9.2, Calcium Adj for Albumin 10.1, Magnesium 1.8, Total Bilirubin 0.4, AST 16, ALT 9 L, Alkaline Phosphatase 70, Troponin I Less than 0.017, Total Protein 7.0, Albumin 2.5 L 04/01/18 10:10: PT 16.0 H, INR (Anticoag Therapy) 1.59 H, PTT ([place]) 39.0 H 04/01/18 10:10: Blood Type A Positive, Antibody Screen Negative 04/01/18 14:00: pCO2 40.6, pO2 141.8 H, HCO3 25.3, Total CO2 26.5 H, Base Excess 0.6, ABG pH 7.41, ABG O2 Sat (Measured) 98.8 H 04/01/18 20:00: pCO2 37.0, pO2 87.1, HCO3 24.9, Total CO2 26.0 H, Base Excess 0.9, ABG pH 7.45, ABG O2 Sat (Measured) 97.0 Discharge Location: Home Disposition: Home Health Service Condition: Critical Discharge Activity: Activity as tolerated Discharge Diet: General/regular food Referrals: J Luis Godwin MD [Primary Care Provider] - Additional Patient Instructions (free text): -Please make TCM appointment unless group home discharge. Thank you! Arielle @ ext:[phone]. [facility] HH ongoing, please call and fax discharge information to them. Complete Home Medications List: Complete Home Medication List: metoprolol tartrate 25 mg tablet 12.5 mg PO BID tab 10/29/17 multivitamin tablet 1 tab PO DAILY 10/29/17 dabigatran etexilate 150 mg capsule 75 mg PO BID cap 12/30/17 nitroglycerin 0.4 mg sublingual tablet 0.4 mg SL Q5M PRN #20 tab 02/25/18 finasteride 5 mg tablet 5 mg PO DAILY #90 tab 03/05/18 2 morgan walker 0 .ROUTE .MEDSUPPLY #99 ea 03/31/18 pravastatin 20 mg tablet 20 mg PO HS #90 tab 03/31/18 Furosemide [Lasix] 40 mg PO BID 04/01/18 Omeprazole 40 mg PO DAILY 04/01/18 Potassium Chloride [Klor-Con M10] 10 meq PO BID 04/02/18
[2018-04-02 10:42] VITALS: BP 106/58
== END 2018-04-02 11:10 | disposition home health service (06) ==
LOC: SCU 09:57 → ER 09:57 → SCU 11:20 → MS 16:44
PROVIDERS: ADMIT Family Medicine; ATTEND Family Medicine
DX: D50.0 Iron deficiency anemia secondary to blood loss (chronic); T50.905A Adverse effect of unspecified drugs, medicaments and biological substances, initial encounter; I48.2 Chronic atrial fibrillation; R09.02 Hypoxemia; C67.1 Malignant neoplasm of dome of bladder
CPT/HCPCS: 36415; 36600; 71010; 71045; 80053; 82803; 83735; 84484; 85025; 85610; 85730; 86850; 86900; 93005; 94640; 94664; 96365; 96366; 96375; 99285; G0378